=== PATIENT | female | born 1995 | race Caucasian/White ===

== ENCOUNTER → 2023-04-10 | Outpatient (CLI) | payer BC ==
[2023-04-10 18:18] LABS: Source, Urine Clean Catch
[2023-04-10 19:18] LABS: Appearance, Urine Hazy (Clear); Bilirubin, Urine Neg (Neg); Blood, Urine 2+ (Neg); Color, Urine Yellow (P-Yellow); Glucose Qualitative, Urine Neg (Neg); Ketones, Urine Neg (Neg); Leukocyte Esterase, Urine Neg (Neg); Nitrite, Urine Neg (Neg); Protein, Urine Neg (Neg); Specific Gravity, Urine 1.025 (1.003-1.022); Urobilinogen, Urine NORM (Normal)
[2023-04-10 20:24] LABS: Bacteria Many /hpf; Mucus Heavy (0-Heavy)
[2023-04-10 20:25] LABS: Calcium Oxalate Crystals Mod /hpf; Squamous Epithelial Cells Mod /hpf (Few); Uric Acid Crystals Few /hpf
[2023-04-11 12:31] LABS: Candida species (DNA Probe) Negative (NEGATIVE); G. vaginalis (DNA Probe) Negative (NEGATIVE); T. vaginalis (DNA Probe) Negative (NEGATIVE)
== END ==
LOC: LAB SHORT 18:16 → LAB 18:16
PROVIDERS: Advanced Practice Midwife
DX: N76.0 Acute vaginitis (principal); R31.9 Hematuria, unspecified
CPT/HCPCS: 81001; 87086; 87480; 87510; 87660

== ENCOUNTER → 2023-07-04 | Outpatient (CLI) | payer BC ==
[2023-07-04 13:29] LABS: Source, Urine Clean Catch
[2023-07-04 14:22] LABS: Appearance, Urine Hazy (Clear); Bilirubin, Urine Neg (Neg); Blood, Urine 5+ (Neg); Color, Urine Yellow (P-Yellow); Glucose Qualitative, Urine Neg (Neg); Ketones, Urine Neg (Neg); Leukocyte Esterase, Urine 1+ (Neg); Nitrite, Urine Neg (Neg); Protein, Urine 2+ (Neg); Specific Gravity, Urine 1.015 (1.003-1.022); Urobilinogen, Urine NORM (Normal); pH, Urine 6.5 (5.0-8.0)
[2023-07-04 14:24] LABS: Bacteria Many /hpf; Squamous Epithelial Cells Mod /hpf (Few)
[2023-07-04 15:12] LABS: Bacterial Vaginosis PCR Negative (NEGATIVE); Candida Group, PCR NOT DETECTED (NOT DETECT); Candida glabrata-krusei, PCR NOT DETECTED (NOT DETECT)
== END ==
LOC: LAB SHORT 13:27
PROVIDERS: Advanced Practice Midwife
DX: O09.91 Supervision of high risk pregnancy, unspecified, first trimester (principal); O23.591 Infection of other part of genital tract in pregnancy, first trimester; O99.891 Other specified diseases and conditions complicating pregnancy; R31.9 Hematuria, unspecified; Z3A.00 Weeks of gestation of pregnancy not specified
CPT/HCPCS: 81001; 87081; 87086; 87150; 87481; 87661; 87801

== ENCOUNTER → 2025-05-10 | Outpatient (CLI) | payer OTHER | END | disposition home or self-care (01) | LOC: LAB 09:30 → LAB SHORT 09:30 | DX: O09.90 Supervision of high risk pregnancy, unspecified, unspecified trimester (principal); Z98.891 History of uterine scar from previous surgery | CPT/HCPCS: 87081; 87150 ==